=== PATIENT | female | born 1995 | race American Indian/Alaskan Native ===

== ENCOUNTER 2022-02-04 20:44 | Emergency (ER) | payer SELFPAY ==
[2022-02-05] MEDS ORDERED: METOCLOPRAMIDE 10 MG TAB PO ONE (05:21)
[2022-02-05] MEDS ORDERED: diphenhydrAMINE 25 MG CAP PO ONE (05:21)
[2022-02-05] MEDS ORDERED: ACETAMINOPHEN 500 MG TAB PO ONE (05:21)
[2022-02-05] MEDS ORDERED: predniSONE 20 MG TAB PO ONE (05:22)
--- NOTE | 2022-02-05 05:51 | Emergency Department Report ---
ED Headache HPI - General Chief Complaint: Headache Stated Complaint: HIGH BP/HEADACHE Time Seen by Provider: 02/05/22 05:20 - History of Present Illness Initial Comments: PT is a 26-year-old female with history of migraine headaches and anxiety who presents for migraine headache for the past 3 days. Patient denies any fevers or chills there is no cough no chest pain no nausea or vomiting. Is mild photophobia. But no decrease in vision headache is in usual location and intensity. Patient is tolerating p.o. intake. Patient did arrive to ED via ambulance last night. However patient appears nontoxic at this time Timing/Duration: other Allergies/Adverse Reactions: Allergies No Known Allergies Allergy (Unverified 02/04/22 21:15) Home Medications: Ambulatory Orders Acetaminophen [Tylenol] 650 mg PO Q6H PRN #60 cap 02/05/22 Metoclopramide [Reglan] 10 mg PO TID PRN #30 tab 02/05/22 diphenhydrAMINE [Benadryl CAP] 25 mg PO Q8HR PRN #30 capsule 02/05/22 hydrALAZINE [Apresoline TAB] 25 mg PO Q8HR PRN #12 tab 02/05/22 ED Review of Systems ROS: Stated complaint: HIGH BP/HEADACHE Other details as noted in HPI Constitutional: malaise Eyes: denies: eye pain, eye discharge, vision change ENT: congestion. denies: ear pain, throat pain Respiratory: denies: cough, shortness of breath, wheezing Cardiovascular: denies: chest pain, palpitations Endocrine: no symptoms reported Gastrointestinal: denies: abdominal pain, nausea, vomiting, diarrhea Genitourinary: denies: urgency, dysuria, discharge Musculoskeletal: denies: back pain, joint swelling, arthralgia Skin: denies: rash, lesions Neurological: headache. denies: weakness, numbness, paresthesias, confusion, vertigo Psychiatric: denies: anxiety, depression Hematological/Lymphatic: denies: easy bleeding, easy bruising ED Past Medical Hx - Medications Home Medications: Home Medications Medication Instructions Recorded Confirmed Last Taken Type Acetaminophen [Tylenol] 650 mg PO Q6H PRN #60 cap 02/05/22 Unknown Rx Metoclopramide [Reglan] 10 mg PO TID PRN #30 tab 02/05/22 Unknown Rx diphenhydrAMINE [Benadryl CAP] 25 mg PO Q8HR PRN #30 capsule 02/05/22 Unknown Rx hydrALAZINE [Apresoline TAB] 25 mg PO Q8HR PRN #12 tab 02/05/22 Unknown Rx ED Physical Exam - General Limitations: No Limitations General appearance: alert, in no apparent distress - Head Head exam: Present: normocephalic, normal inspection - Eye Eye exam: Present: PERRL, EOMI Pupils: Present: normal accommodation - ENT ENT exam: Present: mucous membranes moist - Neck Neck exam: Present: normal inspection, full ROM. Absent: tenderness, meningismus, lymphadenopathy, thyromegaly - Expanded Neck Exam Expanded Neck exam: Absent: tenderness, midline deformity, anterior neck swelling, thyroid mass, carotid bruit, tracheal deviation - Respiratory Respiratory exam: Present: normal lung sounds bilaterally. Absent: respiratory distress, wheezes, stridor - Cardiovascular Cardiovascular Exam: Present: regular rate, normal rhythm, normal heart sounds. Absent: systolic murmur, diastolic murmur, rubs, gallop - GI/Abdominal GI/Abdominal exam: Present: soft. Absent: distended, tenderness, bruit, hernia - Rectal Rectal exam: Present: deferred - Extremities Exam Extremities exam: Present: normal inspection, full ROM, normal capillary refill - Back Exam Back exam: Present: normal inspection, full ROM. Absent: CVA tenderness (R), CVA tenderness (L) - Neurological Exam Neurological exam: Present: alert, oriented X3, CN II-XII intact, normal gait, reflexes normal. Absent: motor sensory deficit - Expanded Neurological Exam Expanded Patient oriented to: Present: person, place, time Speech: Present: fluid speech Motor strength exam: RUE: 5, LUE: 5, RLE: 5, LLE: 5 Best Eye Response ([place]): (4) open spontaneously Best Motor Response (Renee): (6) obeys commands Best Verbal Response (Renee): (5) oriented [place] Total: 15 - Psychiatric Psychiatric exam: Present: normal affect, normal mood - Skin Skin exam: Present: warm, dry, intact, normal color. Absent: rash ED Course Vital Signs 02/04/22 02/05/22 21:14 05:39 Temperature 98 F Pulse Rate 66 Respiratory 16 18 Rate Blood Pressure 176/106 [Right] O2 Sat by Pulse 99 Oximetry ED Medical Decision Making - Medical Decision Making Neuro exam is unremarkable with with exception of headache frontal in usual location and intensity. Patient peers well nourished well-hydrated patient tolerating p.o. intake without nausea vomiting. Headache is improved plan DC home with prescriptions, follow-up primary care doctor. Return to emergency department should symptoms worsen. Patient is currently alert oriented x3 amatory with steady gait and with no acute distress at this time. Critical care attestation.: If time is entered above; I have spent that time in minutes in the direct care of this critically ill patient, excluding procedure time. ED Disposition Clinical Impression: Stress Migraine Qualifiers: Migraine type: without aura Status migrainosus presence: without status migrainosus Intractability: not intractable Qualified Code(s): G43.009 - Migraine without aura, not intractable, without status migrainosus Disposition: HOME / SELF CARE / HOMELESS Is pt being admited?: No Does the pt Need Aspirin: No Condition: Stable Instructions: Recurrent Migraine Headache, Uitm-sk-[id number] Additional Instructions: Take medications as prescribed, follow-up with your doctor in 2 to 3 days. Return to emergency department should symptoms worsen. Prescriptions: hydrALAZINE [Apresoline TAB] 25 mg PO Q8HR PRN #12 tab PRN Reason: Stress Ulcer Prophylaxis diphenhydrAMINE [Benadryl CAP] 25 mg PO Q8HR PRN #30 capsule PRN Reason: Headache Metoclopramide [Reglan] 10 mg PO TID PRN #30 tab PRN Reason: Headache Acetaminophen [Tylenol] 650 mg PO Q6H PRN #60 cap PRN Reason: Headache Referrals: JEANA DOOLEY MD [Referring] - 3-5 Days KATY GARY MD [Staff Physician] - 3-5 Days Forms: Work/School Release Form(ED) Time of Disposition: 06:16
[2022-02-05 07:20] VITALS: BP 128/74
== END 2022-02-05 07:12 | disposition home or self-care (01) ==
LOC: ED 02-05 07:06
DX: G43.909 Migraine, unspecified, not intractable, without status migrainosus (principal); F43.9 Reaction to severe stress, unspecified
CPT/HCPCS: 99283